=== PATIENT | female | born 1965 | race Caucasian/White ===

== ENCOUNTER 2021-02-12 09:11 | Outpatient (CLI) | payer BC ==
[2021-02-12 21:10] LABS: SARS-CoV-2 PCR by NAA Not Detected (NotDetected)
== END 2021-02-12 09:12 | disposition home or self-care (01) ==
LOC: CSHLAB 09:11
PROVIDERS: ATTEND Obstetrics & Gynecology
DX: Z01.818 Encounter for other preprocedural examination (principal); Z20.822 Contact with and (suspected) exposure to COVID-19; D25.9 Leiomyoma of uterus, unspecified; N92.0 Excessive and frequent menstruation with regular cycle; R10.2 Pelvic and perineal pain
CPT/HCPCS: 93005; 93010; U0003; U0005

== ENCOUNTER 2021-02-16 05:59 | Day surgery (SDC) | payer BC ==
[2021-02-12 15:10] VITALS: BMI 41.7
[2021-02-16] MEDS ORDERED: Gabapentin 300 MG CAP ONE (06:23)
[2021-02-16] MEDS ORDERED: CeleCOXIB 100 MG CAP ONE (06:23)
[2021-02-16] MEDS ORDERED: Lidocaine 1% MPF 2 ML VIAL ONE (06:24)
[2021-02-16] MEDS ORDERED: Famotidine/PF 20 mg/2ml Vial ONE (06:24)
[2021-02-16] MEDS ORDERED: Bupivacaine PF 0.5% 30 ML VIAL ONE (06:45)
[2021-02-16] MEDS ORDERED: EPINEPHrine 1 MG/ML AMP ONE (06:45)
[2021-02-16] MEDS ORDERED: PROPOFOL 20 ML ONE ×2 (06:54→08:19)
[2021-02-16] MEDS ORDERED: Rocuronium Bromide 10 MG/ML (10ML VIAL) ONE ×2 (06:55→06:56)
[2021-02-16] MEDS ORDERED: Fentanyl 250 MCG/5 ML VIAL ONE (06:55)
[2021-02-16] MEDS ORDERED: Ondansetron PF 4 MG/2 ML Vial ONE ×3 (06:55→12:23)
[2021-02-16] MEDS ORDERED: Glycopyrrolate 0.2 MG/ML 5 ML SYRINGE ONE (06:55)
[2021-02-16] MEDS ORDERED: Midazolam HCl 2 mg/2 ml Vial ONE (06:55)
[2021-02-16] MEDS ORDERED: Lidocaine 1% PF 5 ML VIAL ONE (06:55)
[2021-02-16] MEDS ORDERED: Dexamethasone 4 mg/ml Vial ONE ×2 (06:55→08:17)
[2021-02-16] MEDS ORDERED: PHENYLEPHRINE-NS 100 MCG/ML 10 ML SYRINGE ONE (06:56)
[2021-02-16] MEDS ORDERED: Scopolamine 1.5 mg/72 hour Patch ONE (07:14)
[2021-02-16 07:15] LABS: BHCG - Serum Negative (NEGATIVE); Pregs Control Background? CLEAR/WHITE (CLR/WHITE); Pregs Control Bar Appear? YES (CONTROL BAR)
[2021-02-16] MEDS ORDERED: ceFAZolin 2 GM/DEX 5% 100 ML BAG ONE (07:19)
[2021-02-16] MEDS ORDERED: SUGAMMADEX SODIUM 200 MG/2 ML VIAL ONE (07:20)
[2021-02-16] MEDS ORDERED: HYDROmorphone 0.5 MG/0.5 ML SYRINGE ONE (07:21)
[2021-02-16] MEDS ORDERED: Phenylephrine 10 MG/ML VIAL ONE (07:22)
[2021-02-16] MEDS ORDERED: ePHEDrine Sulfate 50 MG/10 ML VIAL ONE (08:00)
[2021-02-16] MEDS ORDERED: Succinylcholine 200 MG/10 ml SYRINGE FS ONE (08:25)
[2021-02-16] MEDS ORDERED: Ketorolac Tromethamine 30 MG/ML VIAL ONE (08:25)
[2021-02-16] MEDS ORDERED: Fentanyl 100 MCG/2 ML VIAL ONE (09:53)
== END 2021-02-16 13:15 | disposition home or self-care (01) ==
LOC: CSHSDC 05:59
PROVIDERS: ATTEND Obstetrics & Gynecology
PROC: 0UT24ZZ Resection of Bilateral Ovaries, Percutaneous Endoscopic Approach (ICD-10-PCS; principal; 2021-02-16)
PROC: 0UT74ZZ Resection of Bilateral Fallopian Tubes, Percutaneous Endoscopic Approach (ICD-10-PCS; principal; 2021-02-16)
PROC: 0UT94ZZ Resection of Uterus, Percutaneous Endoscopic Approach (ICD-10-PCS; principal; 2021-02-16)
DX: D25.9 Leiomyoma of uterus, unspecified (principal); N80.0 Endometriosis of uterus; N83.01 Follicular cyst of right ovary; N83.292 Other ovarian cyst, left side; I10 Essential (primary) hypertension; Z79.899 Other long term (current) drug therapy
CPT/HCPCS: 36415; 84703; 86850; 86900; 86901; 88307; J0171; J1100; J1170; J1885; J2250; J2370; J2405; J2704; J3010; S0020; S0028